=== PATIENT | female | born 1985 | race African-American/Black ===

== ENCOUNTER 2018-06-16 09:42 | Emergency (ER) | payer MEDICARE ==
[~2018-06-16] VITALS: Ht 157.5 cm; Wt 78.9 kg
[2018-06-16 10:05] VITALS: BP 143/78
--- NOTE | 2018-06-16 10:07 | PHYS DOC ---
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 Pt denies any abdominal pain, back pain, nausea, vomiting, diarrhea, or fever. She states that she feels panicked during the attacks and she denies any specific triggers. Pt states she has been taking long naps during the day recently. She denies any pain, anxiety, or complaints at this time. Review of Systems Review of Systems Constitutional: Denies fever or chillsl; see HPI [] Eyes: Denies change in visual acuity, redness, or eye pain [] HENT: Denies nasal congestion or sore throat [] Respiratory: Denies cough or shortness of breath [] Cardiovascular: No additional information not addressed in HPI [] GI: Denies abdominal pain, nausea, vomiting,or diarrhea [] Musculoskeletal: Denies back pain or joint pain [] Integument: Denies rash or skin lesions [] Neurologic: Denies headache, focal weakness or sensory changes [] All other systems were reviewed and found to be within normal limits, except as documented in this note. Allergies Allergies Allergies Coded Allergies Type Severity Reaction Last Updated Verified Penicillins Allergy Intermediate 10/05/15 Yes ibuprofen Allergy Intermediate 10/05/15 Yes Physical Exam Physical Exam Constitutional: Well developed, well nourished, no acute distress, non-toxic appearance, obese. [] HENT: Normocephalic, atraumatic, bilateral external ears normal, bilateral TMs normal, oropharynx moist, no oral exudates, nose normal. [] Eyes: PERRLA, conjunctiva normal, no discharge. [] Neck: Normal range of motion, no tenderness, supple, no stridor. [] Cardiovascular:Heart rate regular rhythm, no murmur [] Lungs & Thorax: Bilateral breath sounds clear to auscultation [] Skin: Warm, dry, no erythema, no rash. [] Extremities: No cyanosis, no clubbing, ROM intact, no edema. [] Neurologic: Alert and oriented X 3, normal motor function, normal sensory function, no focal deficits noted. [] Psychologic: Affect normal, judgement normal, mood normal. [] Current Patient Data Vital Signs Vital Signs Date Time Temp Pulse Resp B/P (MAP) Pulse Ox O2 Delivery O2 Flow Rate FiO2 06/16/18 10:05 98.8 110 20 143/78 (99) 99 Room Air 98.8 Lab Values Laboratory Tests Test 06/16/18 10:08 Glucose (Fingerstick) 104 mg/dL (70-99) H EKG EKG [] Radiology/Procedures Radiology/Procedures [] Course & Med Decision Making Course & Med Decision Making Pertinent Labs and Imaging studies reviewed. (See chart for details) blood sugar was 104. Encouraged establishing a sleep routine. Follow up with a primary care doctor for further evaluation and treatment. Limit screen time before bed, caffeinated foods. Provided list of PCP in the area. [] Dragon Disclaimer Dragon Disclaimer This electronic medical record was generated, in whole or in part, using a voice recognition dictation system. Departure Departure Impression: Primary Impression: Sleep difficulties Additional Impression: Anxiety Disposition: 01 HOME, SELF-CARE Condition: STABLE Referrals: NO PCP (PCP) Patient Instructions: Anxiety and Panic Attacks, [id number] Additional Instructions: Establish a routine for your sleep, avoid screen exposure an hour before bed. Limit caffeinated beverages. Follow up with a PCP using the list provided. Problem Qualifiers ABDOULAYE MORRIS APRN Jun 16, 2018 10:07
== END 2018-06-16 10:52 | disposition home or self-care (01) ==
LOC: ER 09:42
DX: G47.00 Insomnia, unspecified (principal); F41.9 Anxiety disorder, unspecified
CPT/HCPCS: 82962; 99283